=== PATIENT | male | born 1980 | race Caucasian/White ===

== ENCOUNTER 2018-08-05 06:18 | Emergency (ER) | payer SELFPAY ==
[2018-08-05] MEDS: LORAZEPAM 1 MG TAB PO (06:39)
== END 2018-08-05 07:58 | disposition home or self-care (01) ==
LOC: E/R 06:18
DX: F10.180 Alcohol abuse with alcohol-induced anxiety disorder (principal); R40.2252 Coma scale, best verbal response, oriented, at arrival to emergency department; R40.2362 Coma scale, best motor response, obeys commands, at arrival to emergency department; R40.2142 Coma scale, eyes open, spontaneous, at arrival to emergency department
CPT/HCPCS: 99283

== ENCOUNTER 2018-08-05 18:55 | Emergency (ER) | payer OTHER | END 2018-08-05 19:20 | LOC: E/R 18:55 | DX: S00.01XA Abrasion of scalp, initial encounter (principal); X58.XXXA Exposure to other specified factors, initial encounter; Y92.9 Unspecified place or not applicable | CPT/HCPCS: 99282 ==